=== PATIENT | female | born 1995 | race Caucasian/White ===

== ENCOUNTER 2017-11-11 12:38 | Emergency (ER) | payer OTHER ==
[~2017-11-11] VITALS: Ht 172.7 cm; Wt 86.3 kg
[~2017-11-11 12:38] MED LIST: IRON325 M1 PO; PRENATAL TABLE1 EAC3 PO
[2017-11-11 13:45] LABS: CHLORIDE 103 mEq/L (99-109); POTASSIUM 3.6 mEq/L (3.7-5.4); SODIUM 139 mEq/L (136-147)
[2017-11-11 13:48] LABS: GLUCOSE 83 mg/dL (70-99)
[2017-11-11 13:49] LABS: ANION GAP 15 MEQ/L (2-14)
[2017-11-11 13:50] LABS: TOTAL BILIRUBIN 0.3 mg/dL (0.0-1.0)
[2017-11-11 13:51] LABS: ALKALINE PHOSPHATASE 85 IU/L (3-129); GFR ESTIMATE (CALCULATED) > 59 mL/min/
[2017-11-11 13:52] LABS: UREA NITROGEN (BUN) 11 mg/dL (9-23)
[2017-11-11 13:52] LABS: ADD MIUA? YES; BILIRUBIN NEGATIVE; BLOOD NEGATIVE; COLOR STRAW ((YELLOW)); GLUCOSE (STRIP) NEGATIVE; KETONES NEGATIVE; LEUKOCYTES SMALL; NITRITE NEGATIVE; PROTEIN (STRIP) NEGATIVE; SPECIFIC GRAVITY 1.005 (1.000-1.030); UROBILINOGEN 0.2 MG/DL (0.2-1.0)
[2017-11-11 13:55] LABS: BACTERIA RARE /HPF; EPITHELIAL CELLS RARE /HPF; MUCUS NONE SEEN /LPF; RED BLOOD CELLS 0-5 /HPF (0-5); UCUL ADDED? NO; WHITE BLOOD CELLS 0-5 /HPF (0-5)
[2017-11-11 14:00] LABS: HEMATOCRIT 34.2 % (36.0-46.0); MCH 20.1 PG (29.0-34.0); MCHC 29.5 G/DL (30.0-36.0); MEAN PLAT.VOLUME 9.1 uM^3 (9.5-12.4); PLATELET COUNT 415 K/uL (156-360); RBC DIS.WIDTH-CV 18.8 % (11.8-14.6); RBC DIS.WIDTH-SD 45.5 % (39-53); RED BLOOD COUNT 5.03 M/uL (3.80-5.20); WHITE BLOOD COUNT 20.4 K/uL (4.1-10.2)
[2017-11-11 14:01] LABS: QUANTITATIVE HCG < 4.0 MIU/ML
[2017-11-11] MEDS ORDERED: NAPROSYN500 MG PO (16:35)
[2017-11-11] MEDS ORDERED: ZOFRAN ODT4 MG PO (16:35)
[2017-11-11 17:00] VITALS: BP 114/80
== END 2017-11-11 17:01 | disposition home or self-care (01) ==
LOC: EME 12:38
DX: R10.13 Epigastric pain (principal); R10.31 Right lower quadrant pain; D72.829 Elevated white blood cell count, unspecified; J45.909 Unspecified asthma, uncomplicated; Z87.891 Personal history of nicotine dependence; Z88.1 Allergy status to other antibiotic agents
CPT/HCPCS: 74177; 80053; 81003; 84702; 85027; 99281; 99285; J1885; J2270; J2405; J7030